=== PATIENT | female | born 1950 | race Caucasian/White ===

== ENCOUNTER 2020-10-18 10:54 | Emergency (ER) | payer MEDICARE, SELFPAY ==
[2020-10-18 11:15] VITALS: BP 135/43; PULSE 67; RESP 16; TEMP 37.1; O2SAT 97; BMI 23.0
--- NOTE | 2020-10-18 11:42 | ED.SKABFB ---
HPI - Skin/Abscess/Foreign Bdy General Chief complaint: Skin/Abscess/Foreign Body Stated complaint: BOIL Time Seen by Provider: 10/18/20 11:36 Source: patient Mode of arrival: ambulatory Limitations: no limitations History of Present Illness MD complaint: lesion Onset (ago): week(s) (4) Tetanus up to date: yes Location: chest Severity: mild Quality: dull Pain Consistency: intermittent Relieving factors: none Exacerbating factors: none Associated symptoms: denies other symptoms Treatments prior to arrival: antibiotic (on an antibiotic from med [facility] [employer]) Related Data Previous Rx's Medication Instructions Recorded cephalexin 500 mg PO BID 7 Days #14 cap 10/18/20 doxycycline hyclate 100 mg PO BID 7 Days #14 cap 10/18/20 Allergies Allergy/AdvReac Type Severity Reaction Status Date / Time No Known Allergies Allergy Verified 10/18/20 11:18 Review of Systems Review of Systems: Constitutional : No Fever, No Chills ENT/Mouth : No sore throat, No Rhinorrhea Eyes: No Eye Pain, No Swelling, No Redness Cardiovascular : No Chest Pain, No SOB Respiratory : No Cough, No Sputum Gastrointestinal : No Nausea, No Vomiting, No Diarrhea, No abdominal Pain Genitourinary : No Dysuria, No Hematuria Musculoskeletal : No joint pain, No Myalgias, No Joint Swelling Skin : pos Skin Lesions, no skin rash Neuro : No Weakness, No Numbness, No Headache Psych : No Anxiety, No Depression Heme/Lymph: No Bruising, No Bleeding,No Lymphadenopathy Endocrine : No Polyuria, No Polydipsia All other systems reviewed and are negative [facility] Past Medical History Attestation statement: The following information was validated with the patient. Medical History Arthritis GERD (gastroesophageal reflux disease) Migraine Social History Social History (Updated 10/18/20 @ 11:50 by Sarahi Ware DO) Patient Tobacco Use Status: Never used Tobacco Physical Exam Vital Signs: Vital Signs: Last Vital Signs Temp 98.7 F 10/18/20 11:15 Pulse 67 10/18/20 11:15 Resp 16 10/18/20 11:15 BP 135/43 L 10/18/20 11:15 Pulse Ox 97 10/18/20 11:15 Body Mass Index 23.0 Appearance: Alert. Oriented X3. No acute distress. Eyes: Pupils equal, round and reactive to light. ENT: Pharynx normal. Neck: Normal inspection. Neck supple. CVS: Normal heart rate and rhythm. Pulses normal. Chest: red raised area about 4cm feels firm, has yellow point to it but no fluctuance felt, it is moveable and not necrotic Respiratory: No respiratory distress. Breath sounds normal. Abdomen: Soft and nontender. Skin: Skin warm and dry. Normal skin color. Normal skin turgor. Extremities: No lower extremity edema. No calf ttp Neuro: Oriented X 3. No motor deficit. No sensory deficit. Course Course Course Narrative: US obtain shows 2cm area in the middle hypoechoic consistent with likely abscess only blood came from area ?hematoma, will refer to surgery and her PCP Procedures Abscess I/D Site: chest Side (if applicable): left Local Anesthetic: lidocaine 1% Amount of anesthesia used (mL): 3 Technique: needle aspiration and incised with blade Amount of fluid expressed (mL): 3 Sent for culture/gram staining?: No Irrigation: No Packing used?: none Complications: pain MDM - Skin/Abscess/Foreign Bdy MDM Narrative Medical decision making narrative: 70 yo female here with L sided skin lesion x 4 weeks - on bactrim which isn't working has one more dose, sent here to evaluate for abscess, will US the patient, change antibiotics to cephalexin/doxy and refer to her PCP for mammogram and US to make sure there is no underlying lesion Discharge Plan Discharge Clinical Impression: Abscess, Hematoma Patient Disposition: Home, Self-Care Instructions: Abscess (ED), Hematoma (ED) Additional Instructions: return to ED for any worsening symptoms or concerns keep clean and covered, only showers are okay it is important you follow up with your doctor for mammogram and US, only blood expressed today, please follow up with our surgeon as well if this does not go away with the antibiotics, stop taking bactrim Prescriptions: New doxycycline hyclate 100 mg capsule 100 mg PO BID 7 Days Qty: 14 RF: 0 cephalexin 500 mg capsule 500 mg PO BID 7 Days Qty: 14 RF: 0 Referrals: Roseann Maria MD [Primary Care Provider] - 2 days (ultrasound vs mammogram) Mike Hamilton MD [Physician] - 5 days (if not better)
[2020-10-18 12:02] VITALS: BP 139/74; PULSE 62; RESP 18; TEMP 36.7; O2SAT 96
[2020-10-18] MEDS: Lidocaine HCl 1 % MPF 5 ML VIAL SUBCUT (12:29)
== END 2020-10-18 12:57 | disposition home or self-care (01) ==
LOC: HO.ED 12:57
PROVIDERS: Emergency Provider Emergency Medicine; PCP Internal Medicine
DX: L02.213 Cutaneous abscess of chest wall (principal); S20.212A Contusion of left front wall of thorax, initial encounter; X58.XXXA Exposure to other specified factors, initial encounter; Y93.9 Activity, unspecified; Y92.9 Unspecified place or not applicable; Y99.9 Unspecified external cause status
CPT/HCPCS: 10060; 99283; 99284

== ENCOUNTER → 2020-10-28 15:26 | Outpatient (BNVA) | payer MEDICARE, SELFPAY | PROVIDERS: PCP Internal Medicine; Visit Provider Surgery | DX: N61.0 Mastitis without abscess (principal) | CPT/HCPCS: 99202 ==

== ENCOUNTER → 2020-11-04 14:38 | Outpatient (BNVA) | payer MEDICARE, SELFPAY | PROVIDERS: PCP Internal Medicine; Referring Provider Internal Medicine; Visit Provider Surgery | DX: N61.0 Mastitis without abscess (principal) | CPT/HCPCS: 99212 ==

== ENCOUNTER → 2020-11-25 14:02 | Outpatient (BNVA) | payer MEDICARE, SELFPAY | PROVIDERS: PCP Internal Medicine; Visit Provider Surgery | DX: N61.0 Mastitis without abscess (principal) | CPT/HCPCS: 99212 ==

== ENCOUNTER 2023-11-12 10:35 | Outpatient (AMB) | payer MEDICARE, SELFPAY ==
[2023-11-12 10:48] VITALS: BP 144/78; PULSE 72; TEMP 37.2; O2SAT 99; BMI 22.7
--- NOTE | 2023-11-12 10:48 | AM.OFFWIN_ITS ---
Intake Vital Signs 3 11/12/23 10:48 Height 5 ft 3 in Weight 128 lb BMI 22.7 BP 144/78 H Blood Pressure Location Lt brachial Position Sitting Pulse 72 Pulse Source Pulse Oximeter Temp 99.0 F Temp Source Oral Pulse Oximetry (%) 99 Oxygen Delivery Method Room Air Intake Visit Reasons: EP LT red/swelling eye Intake Note: Pt is here today c/o Lt eye red and swollen Patient Tobacco Use Status: Never used Tobacco Allergies No Known Allergies Allergy (Verified 11/12/23 10:48) HPI EP LT red/swelling eye 2 HPI0 Details Patient is a 73-year-old female comes to the walk-in clinic complaining of recurrent episodes of redness and swelling to her left periorbital area, usually at the crease to the lateral aspect of her eye. A usually radiates to the upper eyelid and causes swelling, and sometimes will radiate down into the lower eyelid. She reports that this has been happening for the last 4-6 months. She relates no new products used, and no allergens known. No changes to her pillow case, or sleeping arrangements however she does usually sleep on her left side. She denies any vision changes, discharge from the eye, headache or dizziness, pain to the area, any bleeding, redness or issue to the eye itself. [facility] Medical History Arthritis GERD (gastroesophageal reflux disease) Migraine Surgical History History of bilateral carpal tunnel release History of total right knee replacement (TKR) Social History Patient Tobacco Use Status: Never used Tobacco Physical Exam Vital Signs: Last Vital Signs Temp 99.0 F 11/12/23 10:48 Pulse 72 11/12/23 10:48 BP 144/78 H 11/12/23 10:48 Pulse Ox 99 11/12/23 10:48 Oxygen Delivery Method Room Air 11/12/23 10:48 BMI result Body Mass Index 22.7 Eyes Other: Erythema Eyes/upper lids images: 2 1. Erythema and very mild edema. No scaling, fluctuance or induration, and no visible hordeolum or stye noted. Assessment & Plan Assessment & Plan (1) Periorbital dermatitis: Code(s): L30.9 - Dermatitis, unspecified Plan: Patient with apparent left periorbital dermatitis, either contact or allergic. She has had this recurrent symptoms for the last 4-6 months. She reports that she will use makeup to cover the area after symptoms flare, and symptoms resolve during make up use. She otherwise does not use makeup or other products to the eye lashes or periorbital area. She denies known allergens otherwise, and reports no new changes to products. I advised that she do conservative management in regards to avoidance of irritants and allergens and only used soaps or other products that are hypoallergenic, which is the mainstay of treatment. She can use petroleum products that are hypoallergenic, and I will also write her for very low-dose topical steroid to use for maximum of 2 weeks. At that point, if symptoms are reoccurring she should follow up with PCP to discuss either Dermatology referral, or if it seems like she gets persistent swelling and this could be related to a blocked duct, she can be considered for referral to Dr. Hubert Rodriguez, who is a specialist in the eyelid. Orders: Orders 2 SARS-CoV2/FLU/RSV Today J06.9 - Acute upper respiratory infection, unspecified, R50.9 - Fever, unspecified Complete Blood Count Auto Diff Today R50.9 - Fever, unspecified Medications: New 2 hydrocortisone 0.5% Can discontinue use when symptoms resolve, use for a maximum of 2 weeks 1 appl topical BID 56 grams 0RF skin irritation 2 weeks Coding Level of Care Code Est Pt Level 4 (46248) Diagnoses Periorbital dermatitis L30.9
== END 2023-11-12 12:09 | disposition home or self-care (01) ==
PROVIDERS: PCP Internal Medicine; Visit Provider Physician Assistant Medical
DX: L30.9 Dermatitis, unspecified (principal)
CPT/HCPCS: 99051; 99214

== ENCOUNTER 2024-08-19 15:38 | Emergency (ER) | payer MEDICARE, SELFPAY ==
--- NOTE | ~2024-08-19 | CT_ITS ---
CLINICAL HISTORY: lumbar pain s p fall CT lumbar spine without contrast Comparison Findings: Normal vertebral body alignment. No fractures or dislocations. The vertebral bodies are normal in height. L2-3: No disc protrusion. L3-4: There is advanced degenerative narrowing of L3-4 with discogenic vertebral endplate sclerosis. There is posterior broad-based disc protrusion with bilateral 3 mm intraforaminal disc protrusions, mild bilateral foraminal stenosis. L4-5: There is posterior broad-based 4 mm disc protrusion and facet hypertrophy with mild bilateral foraminal stenosis. Paraspinous musculature normal. Normal visualized abdominal and pelvic contents. Impression: Moderate degenerative disc space at L4-5 on the right and L3-4 on the left. There is facet hypertrophy and posterior ligament invagination with circumferential canal stenosis most marked L2-3. This document has been electronically signed by: Brandon Zapata MD on 08/19/2024 18:14:24
[2024-08-19 15:44] VITALS: BP 158/73; PULSE 68; RESP 18; TEMP 36.4; O2SAT 100; BMI 23.8
--- NOTE | 2024-08-19 15:46 | ED_ITS ---
HPI - General Adult General Chief complaint: Fall Stated complaint: fall from stool on back Time Seen by Provider: 08/19/24 17:43 Source: patient Mode of arrival: ambulatory Limitations: no limitations History of Present Illness ED Provider: ANAY ALMODOVAR PA-C HPI narrative: 73-year-old female with pmhx significant for arthritis, migraine headache, GERD presents to the ED today for evaluation of diffuse low back pain s/p mechanical fall at 1400 today. She reports attempting to step off of a step stool when she fell, causing her to land on her low back. Denies head strike or LOC. Not on AC. Able to stand and ambulate after fall. Reports pain to the entire low back. She did not trial any [id number] pain medications prior to arrival. Denies hx of spinal surgeries. Denies hx IVDU. Denies bowel/bladder incontinence or retention, numbness/tingling/weakness of the lower extremities, saddle anesthesia. Reports hx of chronic low back pain, currently follows with chiropractor. Related Data Home Medications ?Medication ?Instructions ?Recorded ?Confirmed hydroxychloroquine 200 mg tablet mg PO 03/10/22 propranolol 60 mg capsule,24 60 mg PO DAILY 03/10/22 hr,extended release sumatriptan succinate 100 mg tablet 100 mg PO Q2-4H PRN 03/10/22 famotidine 40 mg tablet (Pepcid) 40 mg PO DAILY 11/12/23 Previous Rx's ?Medication ?Instructions ?Recorded hydrocortisone 0.5 % topical 1 appl topical BID skin irritation 11/12/23 ointment 2 weeks #56 grams baclofen 5 mg tablet 5 mg PO TID PRN muscle pain #10 08/19/24 tabs lidocaine 5 % topical patch 1 patch topical DAILY #15 ea 08/19/24 (Lidoderm) Allergies Allergy/AdvReac Type Severity Reaction Status Date / Time No Known Allergies Allergy Verified 08/19/24 15:47 Review of Systems Review of Systems: Yes all other systems are reviewed and are negative [facility] Past Medical History Attestation statement: The following information was validated with the patient. Source: old records reviewed and nursing notes reviewed Medical History Arthritis Migraine GERD (gastroesophageal reflux disease) Surgical History History of total right knee replacement (TKR) History of bilateral carpal tunnel release Social History Social History Patient Tobacco Use Status: Never used Tobacco Advance Directives: No Advance Directives Information Provided: No Physical Exam ED Vital Signs: Vital Signs - 24 hr 08/19/24 15:44 08/19/24 16:58 08/19/24 16:58 Temperature 97.6 F 98.6 F 98.6 F Pulse Rate 68 69 70 Respiratory Rate 18 20 20 Blood Pressure 158/73 H 169/87 H 169/87 H Pulse Oximetry 100 100 100 Oxygen Delivery Method Room Air Room Air 08/19/24 18:00 Temperature 97.6 F Pulse Rate 69 Respiratory Rate 18 Blood Pressure 173/82 H Pulse Oximetry 100 Oxygen Delivery Method Room Air BMI result Body Mass Index 23.8 hypertensive, afebrile General: Well appearing, in no acute distress. Skin: Warm, dry, intact. No rashes or lesions. Head: Normocephalic, atraumatic. EENT: Hearing is intact b/l. Conjunctiva clear. Sclera is anicteric. PERRLA. EOM intact. Neck: Supple without LAD. Cardiac: Chest wall symmetric. RRR. Lungs: Normal respiratory effort without accessory muscle use. CTA bilaterally. Abdomen: Soft, non-tender, non-distended. No rebound tenderness or guarding. Positive BS x4. Back: +TTP of left lumbar paraspinal musculature. No midline spinous tenderness. No step off deformity. Ext: Upper and lower extremities atraumatic, without tenderness, deformity, swelling or erythema. Full ROM throughout. Strength 5/5 throughout. Neuro: AOx3. Normal speech. Sensation intact to light touch. NV intact distally. Ambulating with steady gait. Course Course Course Narrative: RME performed by Sariah Jackson PA-C. Patient is a 73 year old assigned female at presenting to the emergency department with back pain. Patient states that she fell off of a 3 step stool and landed flat on her back. Patient states that she is now having back pain and pain with breathing. Patient states that she did not hit her head or have any loss of consciousness. Patient denies any anti-coagulation medication use. Detailed physical exam and review of systems are deferred to the insulator cutter and former. Imaging ordered. Patient placed back in the waiting room pending room availability and results. Reevaluation(s) Reevaluation #1: CT lumbar spine without acute fracure. exam benign. no back pain red flags. pain has improved w/ baclofen, lido patch, and tylenol. patient requesting to leave the ED - I feel his is reasonable. Patient has remained stable throughout ED visit today. Discussed worrisome signs and symptoms and when to return to the ED. All questions answered at this time. Patient is agreeable with disposition and stable for discharge. Medications Administered Discontinued Medications Generic Name Dose Route Start Last Admin Trade Name Freq PRN Reason Stop Dose Admin Acetaminophen 975 mg 08/19/24 17:55 08/19/24 18:05 Acetaminophen 325 Mg Tablet PO 08/19/24 17:56 975 mg ONCE ONE Administration Baclofen 10 mg 08/19/24 17:55 08/19/24 18:05 Baclofen 10 Mg Tablet PO 08/19/24 17:56 10 mg ONCE ONE Administration Lidocaine 1 patch 08/19/24 17:55 08/19/24 18:05 Lidocaine 4 % Patch Adh..Patch TRANSDERMA 08/19/24 17:56 1 patch ONCE ONE Administration Protocol Medical Decision Making Medical Decision Making MDM Narrative: 73-year-old female with pmhx significant for arthritis, migraine headache, GERD presents to the ED today for evaluation of diffuse low back pain s/p mechanical fall at 1400 today. hypertensive, afebrile. she is well appearing and in NAD. exam benign. she has no midline spinous tenderness or step off deformity. primarily ttp along left lumbar paraspinal musculature without palpable mass, deformity, fluctuance. pacing around the room with steady gait. SITL throughout. NV intact distally. Concern for contusion, MSK sprain/strain, fracture, subluxation, disc herniation, sciatica. Unlikely cord compression, cauda equina, Guillain-Nenzel, epidural abscess. Plan for imaging, pain control, and re-evaluation. Differential Diagnosis Differential Diagnoses: The differential diagnosis associated with the presentation includes as above Admission/Observation Not indicated. Independent Interpretation I performed an independent interpretation of an: CT Scan Interpretation: ct lumbar spine without acute fracture Radiology Impression Discussion of test interpretation with radiology: I have reviewed the radiologist's reading. Radiologist Impression: Procedure(s): CT lumbar spine wo IV con Accession Number(s): [id number] cc: ROSEANN VICK MD; Sariah Jackson~ Report Number: [id number]: Total DLP = 327.00 mGy-cm CLINICAL HISTORY: lumbar pain s p fall CT lumbar spine without contrast Comparison Findings: Normal vertebral body alignment. No fractures or dislocations. The vertebral bodies are normal in height. L2-3: No disc protrusion. L3-4: There is advanced degenerative narrowing of L3-4 with discogenic vertebral endplate sclerosis. There is posterior broad-based disc protrusion with bilateral 3 mm intraforaminal disc protrusions, mild bilateral foraminal stenosis. L4-5: There is posterior broad-based 4 mm disc protrusion and facet hypertrophy with mild bilateral foraminal stenosis. Paraspinous musculature normal. Normal visualized abdominal and pelvic contents. Impression: Moderate degenerative disc space at L4-5 on the right and L3-4 on the left. There is facet hypertrophy and posterior ligament invagination with circumferential canal stenosis most marked L2-3. This document has been electronically signed by: Brandon Zapata MD on 08/19/2024 18:14:24 External Record Review External record reviewed: Inpatient record Prescription Management I considered prescription management with: Pain Medication and Other (Muscle relaxer, steroid) Social Determinants Patient?s care significantly limited by Social Determinants of Health including: Other Social Determinant of Health Critical Care Time Critical Care Time Critical Care Time: No Discharge Plan Discharge Clinical Impression: Lumbar back pain, Fall Patient Disposition: Home, Self-Care Instructions: Acute Low Back Pain (ED), Fall Prevention (ED) Additional Instructions: You were evaluated in the Emergency Department today for your back pain.? Your evaluation did not show signs of medical conditions requiring emergent intervention at this time. Avoid bending, lifting, or twisting. Use ice several times per day for 20 minutes at a time for the next 48 hours and then change to heat. I recommend you take 600mg ibuprofen every 6 hours or tylenol 650mg every 6 hours as needed for pain. If needed, you can alternate these medications so that you take one medication every 3 hours. For example, at noon take ibuprofen, then at 3pm take tylenol, then at 6pm take ibuprofen. Baclofen is a muscle relaxer. Take this at night as it makes you drowsy. Do not drive, drink alcohol, or operate machinery while taking it. Lidoderm patches are numbing patches. Apply to painful areas. Please schedule an appointment for follow-up with your primary care provider this week for further evaluation of your symptoms. Return to the Emergency Department if you experience worsening back pain, difficulty walking, fevers, numbness, tingling, incontinence, or any other concerning symptoms. In the case of an emergency call 911. Prescriptions: New lidocaine [Lidoderm] 5 % adhesive patch,medicated 1 patch topical DAILY Qty: 15 0RF Rx Instructions: leave on most painful area for up to 12 hrs baclofen 5 mg tablet 5 mg PO TID PRN (Reason: muscle pain) Qty: 10 0RF No Action hydroxychloroquine 200 mg tablet PO propranolol 60 mg capsule,extended release 24 hr 60 mg PO DAILY sumatriptan succinate 100 mg tablet 100 mg PO Q2-4H PRN Rx Instructions: do not exceed 2 doses per 24 hrs famotidine [Pepcid] 40 mg tablet 40 mg PO DAILY hydrocortisone 0.5 % ointment 1 appl topical BID 14 Days Qty: 56 0RF Rx Instructions: Can discontinue use when symptoms resolve, use for a maximum of 2 weeks Referrals: Roseann Vick MD [Primary Care Provider] - Babatunde Castillo MD, PhD [Physician] - Print Language: [place]
[2024-08-19 16:58] VITALS: BP 169/87; PULSE 69; PULSE 70; RESP 20; TEMP 37; O2SAT 100
--- OUTSIDE RECORDS SUMMARY | 2024-08-19 17:05 | XMS_ITS | Data Portability ---
Author Organization АНДРЕЙ De León markus [address] Address [address] [place] [address] Assessment No assessment recorded. Plan of Treatment Reminders Order Date Submit Date Provider Last Modified By Organization Details Last Modified Time Details Appointments None recorded. Lab None recorded. Referral None recorded. Procedures None recorded. Surgeries None recorded. Imaging None recorded. Medication Orders Lomotil 2.5 mg-0.025 mg tablet 023 023 [email or web address] [facility]/Pharmacy #[id number], [address] [facility] [place], [address], 12:43:34 Patient TargetsNo targets recorded. Patient Instructions Encounter Date Encounter Id Patient Instructions Last Modified By Organization Details Last Modified Time 10/24/2022 [id number] diarrhea: care instructions [email or web address] Not available 10/24/2022 15:25:55 Take 1 OTC Immodium after each loose bowel movement. No more than 4 tablets a day. Not available 10/24/2022 14:47:09 Reason for Referral None Reported. Problems Name Problem SNOMED Code Status Onset Date Resolution Date Notes Provider Name and Address Organization Details Recorded Time Hypertensive disorder 87193109 Active 2022 LELAND mahmood PA - [facility] 3 14:49:17 Problem Notes None recorded. Procedures Surgical History Date Name Laterality Status Provider Name and Address Organization Details Recorded Time total replacement of right hip joint completed LELAND Browning [facility] 10/24/2022 14:50:38 Imaging Results None recorded. Procedure Notes None recorded. Medical Equipment None Reported. Allergies No known drug allergies Medications Name Sig Start Date Stop Date Status Note LastModified by Organization Details LastModified Time prednisone 10 mg tablet TAKE 3 TABLETS BY MOUTH TWICE A DAY WITH FOOD FOR 5 DAYS FOR INFLAMMAT ION 10/24 completed Not Available Not Available Not Available propranolol ER 60 mg capsule,24 hr,extended release active Not Available Not Available Not Available diphenoxyla te-atropine 2.5 mg-0.025 mg tablet TAKE 1-2 TABS BY MOUTH 2-3 TIMES DAILY NEEDED DIARRHEA/ LOOSE STOOL. MAX 8/ DAY active Not Available Not Available No t Available amlodipine 5 mg tablet active Not Available Not Available Not Available clotrimazol e-betametha sone 1 %-0.05 % topical cream APPLY TOPICALLY TWICE DAILY FOR 14 DAYS, DO NOT USE LONGER THAN 2 WEEKS 10/24 completed Not Available Not Available Not Available cyclobenzap rine 5 mg tablet TAKE 1 TABLET BY MOUTH TWICE A DAY NEEDED FOR MUSCLE SPASM FOR 7 DAYS 10/24 completed Not Available Not Available Not Available Vitals Date Recorded Body height Body mass index (BMI) Body weight Oxygen saturation Oxygen saturation in Arterial blood by Pulse oximetry Pain severity - 0-10 verbal numeric rating [Score] - Reported Heart rate Respiratory rate Body temperature Systolic blood pressure Diastolic blood pressure Provider Name and Address Organization Details Last Updated DateTime 160.02 cm 22.1 kg/m2 64215.0 5 g 97 % 97 % 0 78 /min 16 /min 98.2 [degF] 148 mm[Hg] 82 mm[Hg] LELAND VIDAL PA - [facility] 14:52:39 Social History Question Answer Notes LastModified by Organizat ion Details LastModified Time Tobacco Smoking Status Former Smoker LELAND mahmood PA - [facility] 10/24/2022 14:49:40 What Is Your Level Of Alcohol Consumption? Occasional Information not available 10/24/2022 When Did You Quit Smoking? 16+yearssincel shellie Information not available 10/24/2022 Do You Use Any Illicit Or Recreational Drugs? No Information not available 10/24/2022 Have You Recently Traveled Abroad? No Information not available 10/24/2022 Do You Or Have You Ever Used Any Other Forms Of Tobacco Or Nicotine? No Information not available 10/24/2022 Sex: Unknown Functional Status None recorded. Mental Status None recorded. Family History Relationship Description Onset Age of this Age Resolved Age Notes LastModified by Organization Details LastModified Time Father No current problems or disability Not available 10/24 14:49:26 Mother No current problems or disability Not available 10/24 14:49:27 Medical History No medical history recorded. Gynecological HistoryNo gynecological history recorded. Obstetrics History GPAL:G 0 P 0 0 0 0 Immunizations Vaccine Type Date Status Note Provider Nam e and Address Organization Details Recorded Time COVID-19, mRNA, LNP-S, PF, 100 mcg/0.5mL dose or 50 mcg/0.25mL dose 05/13/2020 completed LELAND VIDAL null, PA - [facility] 10/24/2022 14:48:39 COVID-19, mRNA, LNP-S, PF, 100 mcg/0.5mL dose or 50 mcg/0.25mL dose 06/10/2020 completed LELAND VIDAL null, PA - [facility] 10/24/2022 14:48:39 COVID-19, mRNA, LNP-S, PF, 100 mcg/0.5mL dose or 50 mcg/0.25mL dose 02/03/2021 completed LELAND YOUNG null, PA - [facility] 10/24/2022 14:48:39 COVID-19, mRNA, LNP-S, bivalent, PF, 50 mcg/0.5 mL or 25mcg/0.25 mL dose 01/14/2022 completed LELAND VIDAL null, PA - [facility] 10/24/2022 14:48:39 Past Encounters Encounter ID Performer Location Encounter Start Date Encounter Closed Date Diagnosis/Indication Diagnosis SNOMED-CT Code Diagnosis ICD10 Code Diagnosis Note [id number] [facility] [facility] [address] [place] [address] 11/08/2014 17:19:09 11/08/2014 19:47:48 [id number] [address] [place] [address] 12/03/2018 08:19:15 12/03/2018 09:02:54 [id number] [address] [facility] [place] [address] 06/28/2021 09:08:53 06/28/2021 10:24:32 [id number] [address] [facility] [place] [address] 02/24/2019 10:47:38 02/24/2019 10:54:49 [id number] [address] [facility] [place] [address] 10/30/2017 11:59:58 10/30/2017 13:04:16 [id number] [address] [facility] [place] [address] 12/27/2021 08:31:32 12/27/2021 10:52:34 [id number] [address] [facility] [place] [address] 02/04/2020 12:25:42 02/04/2020 14:34:01 [id number] [address] [facility] [place] [address] 05/19/2020 12:20:32 05/19/2020 13:33:18 [id number] [address] [facility] [place] [place] [address] 05/07/2017 11:50:30 05/07/2017 12:23:26 [id number] [address] [facility] [place] [address] 11/02/2017 11:43:07 11/02/2017 12:18:11 [id number] [address] [place] [address] 11/25/2017 16:53:01 11/25/2017 18:43:52 [id number] [address] [place] [address] 12/05/2018 13:26:04 12/05/2018 14:14:28 [id number] [address] [place] [address] 08/11/2016 09:17:10 08/11/2016 09:50:36 [id number] [address] [place] [address] 03/19/2020 08:55:10 03/19/2020 10:25:32 [id number] [address] [place] [address] 10/14/2020 08:25:43 10/14/2020 09:08:01 [id number] Vidal Dukes DO [address] [place] [address] 10/24/2022 14:20:32 10/24/2022 15:31:21 Diarrhea 40473030 R19.7 BRAT dietavoid dairy products, excess sugars, processed foodTrial daily fiber w/proboiti ctrial lomotil defer labs for now Patient advised to follow up w/ PCP as needed for worsening symptoms or no improvemen t. Discussed concerning red flags with patient and reasons to follow up in the Emergency Department urgently. Health Concerns Section Related Observation LastModified by Organization Detai ls LastModified Time None Recorded Concern Status LastModified by Organization Details LastModified Time None Recorded Advance Directives Directive None Recorded Payers Insurance Date Sequence Insurance Name Policy Number Policy Bush Covered Member ID Bush Member ID Guarantor Name 10/24/2022 1 [facility]: MEDICARE PPO BLUE (MEDICARE REPLACEMENT PPO) [id number] Kizzy Nguyễn [id number] Kizzy Nguyễn 10/24/2022 1 [place] (MEDICARE REPLACEMENT PPO) Kizzy Nguyễn [id number] Kizzy Nguyễn 10/24/2022 1 [facility] (MEDICARE REPLACEMENT/AD VANTAGE - HMO) [id number] Kizzy Nguyễn [id number] Kizzy Nguyễn Notes Date Note Type Note Provider Name and Address Organization Details Recorded Time 10/24/2022 text/html Diarrhea UCRepor molly bypatient.Notes:72 yo femalec/o intermittently over the past 3wksno abdominal pain, fever, nausea or vomitingno bleedingno diet changesno new medsno recent travelno wt loss BM 2-4 x/day. Loose/watery stooltried pepto bismol w/o improvement Vidal Dukes, DO [address] [place], [address], PA - [facility] 10/24/2022 19:41:15 OBGyn Episode No OBEpisode recorded.
--- NOTE | 2024-08-19 17:06 | PC.NURSE ---
Patient is a 73 yo female who presents from home s/p fall from a stool in her shed, landing on her mid back. PMH: Arthritis, GERD (gastroesophageal reflux disease), and Migraine. Patient alert and oriented. Sitting in the chair for comfort. Respirations even and non-labored. Denies any sob. Abdomen flat soft, non-tender with positive bowel sounds. No LE edema noted.
[2024-08-19 18:00] VITALS: BP 173/82; PULSE 69; RESP 18; TEMP 36.4; O2SAT 100
[2024-08-19] MEDS: Baclofen 10 MG TABLET PO (18:05)
[2024-08-19] MEDS: Acetaminophen 325 MG TABLET 975 MG PO (18:05)
[2024-08-19] MEDS: Lidocaine 4 % Patch ADH..PATCH 1 PATCH TRANSDERMA (18:05)
[2024-08-19 18:56] VITALS: BP 173/82; PULSE 69; RESP 18; TEMP 36.4; O2SAT 100
== END 2024-08-19 18:57 | disposition home or self-care (01) ==
PROVIDERS: Emergency Provider Emergency Medicine Emergency Medical Services; PCP Internal Medicine
DX: M54.50 Low back pain, unspecified (principal); Z79.899 Other long term (current) drug therapy
CPT/HCPCS: 72131; 99284

== ENCOUNTER → 2024-08-19 15:47 | Outpatient (BNV) | payer MEDICARE, SELFPAY | PROVIDERS: Emergency Provider Emergency Medicine Emergency Medical Services; PCP Internal Medicine; Visit Provider Radiology Diagnostic Radiology | DX: M54.50 Low back pain, unspecified (principal) | CPT/HCPCS: 72131 ==

== ENCOUNTER 2024-08-28 08:14 | Emergency (ER) | payer MEDICARE, SELFPAY ==
--- NOTE | ~2024-08-28 | XR_ITS ---
EXAMINATION: XR RIBS 3 VIEWS MINIMUM WITH CHEST LEFT HISTORY: pain s/p fall COMPARISON: There are no prior studies for comparison. FINDINGS: A single PA view of the chest and 3 views of the left ribs are submitted. The lungs are expanded and clear. There is no pleural effusion, pneumothorax, or pulmonary vascular congestion. The heart is normal in size. The left ribs are intact. No fracture is seen. XR/XR ribs LT min 3V w CXR1V IMPRESSION: Clear lungs. No evidence of fracture of the left ribs. Electronically signed by: Kleber Baldwin MD 08/28/2024 09:44 AM EDT
[2024-08-28 08:23] VITALS: BP 161/82; PULSE 87; RESP 16; TEMP 37.4; O2SAT 99; BMI 23.5
--- OUTSIDE RECORDS SUMMARY | 2024-08-28 08:54 | XMS_ITS | Patient Health Record ---
Author Organization [facility] Address [address] [place] [address] Care Team Providers Care Shift Coordinator Name Role Phone NICANOR Hardy, DR YOON Primary Care Provider Unavail able BuckMaricelli Unavailable [phone] Reason For Referral No Information Medications Medication SIG (Take, Route, Frequency, Duration) Notes Start Date End Date Status Escitalopram Oxalate 20 MG 1 tablet Oral ly Once a day for 30 day(s) Active Imitrex 100 MG 1 tablet as needed Orally Active Propranolol HCl 60 MG 1 tablet Orally On ce a day Active Zantac 75 75 MG 1 tablet Orally Once a day, am Active Plaquenil 200 MG 1 tablet with food o r milk Orally Twice a day Active Social History Tobacco Use: Social History Observation Description Date Details (start date - stop date) Former Smoker NA - NA Tobacco Use/Smoking Question Answer Notes Are you a former smoker How long has it been since you last smoked? > 10 years Alcohol Screen (Audit-C) Question Answer Notes Did you have a drink contain ing alcohol in the past year? Yes How often did you have a dri nk containing alcohol in the past year? 2 to 4 times a month (2 points) How many drinks did you have on a typical day when you were drinking in the past year? 1 or 2 drinks (0 point) Points 2 Interpretation Negative Sexual History Question Answer Notes Had sex in the past 12 months (vaginal, oral, or anal)? No Have you ever had a Sexually transmitted disease ? No Problems Problem Type SNOMED Code ICD Code Onset Dates Problem Status W/U Status Risk Notes Problem Mild recurrent major depression (73112932) Major depressive disorder, recurrent, mild (F33.0) Active confirmed Problem Menopause (776150961) Menopausal and female climacteric states (N95.1) Active confirmed Plan Of Treatment Pending Test Test Name Order Date MAMMOGRAM, SCREENING 07/05/2018 BONE DENSITY 07/05/2018 MM Digital Mammo Screening 07/05/2018 Insurance Providers Payer Name Payer Address Payer Phone Subscriber Number Group Number Insured Name Patient Relationship to Insured Coverage Start Date Coverage End Date [facility] MEDICARE SOLUTIONS [address] [address] [place] [address] [id number] ANTONIETTA STYLES Self - patient is the insured Medical (General) History Medical History History ICD Code Gastro-esophageal reflux disease without esophagitis K21.9 Unspecified osteoarthritis, unspecified site M19.90 Migraine with aura, not intractable, wit hout status migrainosus G43.109 Menopausal and female climacteric states N95.1 Hormone replacement therapy Z79.890 Major depressive disorder, recurrent, mi ld F33.0 Surgical History Surgery Date(Month/Year) Right Hip Replacement 2012 Hospitalization History Reason Date(Month/Year) 2 Vaginal Deliveries See Surgical Hx
--- OUTSIDE RECORDS SUMMARY | 2024-08-28 08:54 | XMS_ITS | Data Portability ---
Author Organization АНДРЕЙ De León markus [address] Address [address] [place] [address] Assessment No assessment recorded. Plan of Treatment Reminders Order Date Submit Date Provider Last Modified By Organization Details Last Modified Time Details Appointments None recorded. Lab None recorded. Referral None recorded. Procedures None recorded. Surgeries None recorded. Imaging None recorded. Medication Orders Lomotil 2.5 mg-0.025 mg tablet 023 023 [email or web address] [facility]/Pharmacy #[id number], [address] [facility] [place], [address], 12:43:34 Patient TargetsNo targets recorded. Patient Instructions Encounter Date Encounter Id Patient Instructions Last Modified By Organization Details Last Modified Time 10/24/2022 [id number] diarrhea: care instructions [email or web address] Not available 10/24/2022 15:25:55 Take 1 OTC Immodium after each loose bowel movement. No more than 4 tablets a day. Not available 10/24/2022 14:47:09 Reason for Referral None Reported. Problems Name Problem SNOMED Code Status Onset Date Resolution Date Notes Provider Name and Address Organization Details Recorded Time Hypertensive disorder 71877266 Active 2022 [facility] saturation in Arterial blood by Pulse oximetry Heart rate Respiratory rate Body temperature Systolic blood pressure Diastolic blood pressure Provider Name and Address Organization Details Last Updated DateTime 3 160.02 cm 22.1 kg/m2 18759.0 5 g 97 % 97 % 78 /min 16 /min 98.2 [degF] 148 mm[Hg] 82 mm[Hg] LELAND VIDAL PA - [facility] 14:52:39 Social History Question Answer Notes LastModified by [employer] Details LastModified Time Tobacco Smoking Status Former Smoker LELAND mahmood PA - [facility] 10/24/2022 14:49:40 When Did You Quit Smoking? 16+yearssinc elastcigaret te Information not available 10/24/2022 Have You Recently Traveled Abroad? No Information not available 10/24/2022 Sex: Unknown Functional Status Question Answer Note LastModified by [employer] Details LastModified Time Do you use any illicit or recreational drugs? No Information not available 10/24/2022 Do you or have you ever used any other forms of tobacco or nicotine? No Information not available 10/24/2022 What is your level of alcohol consumption? Occasional Information not available 10/24/2022 Mental Status None recorded. Family History Relationship [...] 50 mcg/0.25mL dose 06/10/2020 completed LELAND VIDAL null PA - [facility] 10/24/2022 14:48:39 COVID-19, mRNA, LNP-S, PF, 100 mcg/0.5mL dose or 50 mcg/0.25mL dose 02/03/2021 completed LELAND VIDAL null, PA - [facility] 10/24/2022 14:48:39 COVID-19, mRNA, LNP-S, bivalent, PF, 50 mcg/0.5 mL or 25mcg/0.25 mL dose 01/14/2022 completed LELAND VIDAL null, PA - [facility] 10/24/2022 14:48:39 Past Encounters Encounter ID Performer Location Encounter Start Date Encounter Closed Date Diagnosis/Indication Diagnosis SNOMED-CT Code Diagnosis ICD10 Code Diagnosis Note [id number] [facility] [facility] [address] [place] [address] 11/08/2014 17:19:09 11/08/2014 19:47:48 [id number] [address] [place] [address] 12/03/2018 08:19:15 12/03/2018 09:02:54 [id number] [address] [facility] [place] [address] 06/28/2021 09:08:53 06/28/2021 10:24:32 [id number] [address] [place] [address] 02/24/2019 10:47:38 02/24/2019 10:54:49 [id number] [address] [place] [address] 10/30/2017 11:59:58 10/30/2017 13:04:16 [id number] [address] [place] [address] 12/27/2021 08:31:32 12/27/2021 10:52:34 [id number] [address] [place] [address] 02/04/2020 12:25:42 02/04/2020 14:34:01 [id number] [address] [place] [address] 05/19/2020 12:20:32 05/19/2020 13:33:18 [id number] [address] [place] [address] 05/07/2017 11:50:30 05/07/2017 12:23:26 [id number] [address] [place] [address] 11/02/2017 11:43:07 11/02/2017 12:18:11 [id number] [address] [place] [address] 11/25/2017 16:53:01 11/25/2017 18:43:52 [id number] [address] [place] [address] 12/05/2018 13:26:04 12/05/2018 14:14:28 [id number] [address] [place] [address] 08/11/2016 09:17:10 08/11/2016 09:50:36 [id number] [address] [place] [address] 03/19/2020 08:55:10 03/19/2020 10:25:32 [id number] [address] [place] [address] 10/14/2020 08:25:43 10/14/2020 09:08:01 [id number] Vidal Dukes DO [address] [place] [address] 10/24/2022 14:20:32 10/24/2022 15:31:21 Diarrhea [id number] R19.7 BRAT dietavoid dairy products, excess sugars, [...] Bush Member ID Guarantor Name 10/24/2022 1 [employer] (MEDICARE [place]ACEMENT PPO) [id number] Kizzy Nguyễn [id number] Kizzy Nguyễn 10/24/2022 1 [place] (MEDICARE [place]PLACEMENT PPO) Kizzy Nguyễn [id number] Kizzy Nguyễn 10/24/2022 1 [facility] (MEDICARE REPLACEMENT/AD VANTAGE - HMO) [id number] Kizzy Mehta [place] [id number] Kizzy Nguyễn Notes Date Note Type Note Provider Name and Address Organization Details Recorded Time 10/24/2022 text/html Diarrhea UCRepor molly bypatient.Notes:72 yo femalec/o intermittently over the past 3wksno abdominal pain, fever, nausea or vomitingno bleedingno diet changesno new medsno recent travelno wt loss BM 2-4 x/day. Loose/watery stooltried pepto bismol w/o improvement Vidal Dukes, DO [address] [place], [address], PA - [facility] 10/24/2022 19:41:15 OBGyn Episode No OBEpisode recorded.
--- NOTE | 2024-08-28 09:13 | ED_ITS ---
HPI - URI/Sore Throat General Chief Complaint: Upper Respiratory Symptoms Stated Complaint: Back pain Time Seen by Provider: 08/28/24 09:00 Source: patient Mode of arrival: ambulatory Limitations: no limitations History of Present Illness ED Provider: Josep Duncan PA-C HPI Narrative: 73 yo female presenting to the ER for evaluation of cough for the last 3 days along with worsening left sided rib pain associated with it. She reports calling in her garden shed on Mother's day on her left side. She has had rib pain since but it was overall improving. She started coughing 3-4 days ago and then the pain in the ribs was getting worse. Worse with coughing and deep breaths. Cough is dry and keeping her up at night, not sleeping the last 3 nights. No fever, chills, or other URI symptoms. She is on meds for seasaonal allergies. She is not SOB. MD elicited complaint: cough Onset (ago): day(s) Consistency: progressively worsening Able to tolerate fluids by mouth: Yes Exacerbating factors: supine positioning and other (coughing) Relieving factors: nothing Associated symptoms: cough Treatments prior to arrival: none Related Data Home Medications ?Medication ?Instructions ?Recorded ?Confirmed hydroxychloroquine 200 mg tablet mg PO 03/10/22 propranolol 60 mg capsule,24 60 mg PO DAILY 03/10/22 hr,extended release sumatriptan succinate 100 mg tablet 100 mg PO Q2-4H PRN 03/10/22 famotidine 40 mg tablet (Pepcid) 40 mg PO DAILY 11/12/23 Previous Rx's ?Medication ?Instructions ?Recorded hydrocortisone 0.5 % topical 1 appl topical BID skin irritation 11/12/23 ointment 2 weeks #56 grams baclofen 5 mg tablet 5 mg PO TID PRN muscle pain #10 08/19/24 tabs lidocaine 5 % topical patch 1 patch topical DAILY #15 ea 08/19/24 (Lidoderm) benzonatate 100 mg capsule 100 mg PO TID PRN cough #20 caps 08/28/24 codeine 10 mg-guaifenesin 200 mg/5 5 ml PO Q6H PRN cough #60 mL 08/28/25 mL oral liquid cyclobenzaprine 5 mg tablet 5 mg PO BID PRN muscle spasm #10 08/28/24 tabs hydrocodone-homatropine 5 mg-1.5 5 ml PO Q6H PRN cough #60 mL 08/28/24 mg/5 mL (5 mL) oral solution (Hycodan) Allergies Allergy/AdvReac Type Severity Reaction Status Date / Time No Known Allergies Allergy Verified 08/28/24 08:29 Review of Systems Review of Systems: Yes all other systems are reviewed and are negative COUNTS INCLUDE 234 BEDS AT THE [facility] Past Medical History Medical History Arthritis Migraine GERD (gastroesophageal reflux disease) Surgical History History of total right knee replacement (TKR) History of bilateral carpal tunnel release Social History Social History Patient Tobacco Use Status: Never used Tobacco Physical Exam Vital Signs: Vital Signs: Last Vital Signs Temp 98.0 F 08/28/24 10:53 Pulse 87 08/28/24 10:53 Resp 16 08/28/24 10:53 BP 155/50 H 08/28/24 10:53 Pulse Ox 99 08/28/24 10:53 O2 Del Method Room Air 08/28/24 10:53 BMI result Body Mass Index 23.5 Appearance: Alert. Oriented X3. No acute distress. Head: normocephalic, atraumatic. Eyes: Pupils equal, round and reactive to light. ENT: Pharynx normal. No tonsillar swelling or exudate. Neck: Normal inspection. Neck supple. CVS: Normal heart rate and rhythm. Pulses normal. Respiratory: No respiratory distress. Breath sounds normal. no ecchymosis on the left flank. mild tenderness of left lateral ribs Abdomen: Soft and nontender. +BS x4 Skin: Skin warm and dry. Normal skin color. Normal skin turgor. No rashes. Extremities: No lower extremity edema. No joint swelling. Neuro/psych: Oriented X 3. grossly normal, nonfocal. Normal speech and cognition. Medical Decision Making Medical Decision Making MDM Narrative: 73 yo female presenting for evaluation of cough and left sided rib pain s/p fall on 08/20. VSS and lung sounds normal and present in all lung moore. CXR and rib xray clear. viral URI negative. low suspicion for intra-abdominal trauma or PE. no emergent need for CTA/CT scan today. will treat cough with antitussives and MSK pain encouraged f/u with PCP. stable for d/c home Differential Diagnosis Differential Diagnoses: The differential diagnosis associated with the presentation includes rib fracture, rib contusion, pulmonary contusion, URI, PNA, bronchitis. low suspicion for PE or ACS Admission/Observation Consideration of admission/observation: Escalation of care including admission/observation considered Lab Data MDM Lab Attestation statement: I reviewed the patient's lab results. Labs: Lab Results 08/28/24 Range/Units 09:15 Influenza Type A (PCR) NEGATIVE (Negative) Influenza Type B (PCR) NEGATIVE (Negative) RSV RNA Qual (PCR) NEGATIVE (Negative) SARS-CoV-2 RNA (RT-PCR) NEGATIVE (Negative) Independent Interpretation I performed an independent interpretation of an: Plain X-Ray Interpretation: cxr without PTX or PNA Radiology Impression Discussion of test interpretation with radiology: I have reviewed the radiologist's reading. Radiologist Impression: XR/XR ribs LT min 3V w CXR1V IMPRESSION: Clear lungs. No evidence of fracture of the left ribs. Tests considered The following testing was considered but not selected: considered CT scan Prescription Management I considered prescription management with: Antibiotic Critical Care Time Critical Care Time Critical Care Time: No Discharge Plan Discharge Clinical Impression: Contusion of rib on left side Patient Disposition: Home, Self-Care Instructions: Rib Contusion (ED) Additional Instructions: your xrays today were normal take the prescribed cough medication and muscle relaxer at night to help you sleep take the cough pills during the day it is important to take deep breaths during the day and exercise your lungs to prevent pneumonia rest and drink plenty of fluids follow up with your doctor If you develop new or worsening symptoms call 911 or come back to the ER for further evaluation. Prescriptions: New benzonatate 100 mg capsule 100 mg PO TID PRN (Reason: cough) Qty: 20 0RF hydrocodone-homatropine [Hycodan] 5-1.5 mg/5 mL (5 mL) solution 5 ml PO Q6H PRN (Reason: cough) Qty: 60 0RF Rx Instructions: Partial Fill upon patient request. cyclobenzaprine 5 mg tablet 5 mg PO BID PRN (Reason: muscle spasm) Qty: 10 0RF codeine-guaifenesin 10-200 mg/5 mL liquid 5 ml PO Q6H PRN (Reason: cough) Qty: 60 0RF No Action lidocaine [Lidoderm] 5 % adhesive patch,medicated 1 patch topical DAILY Qty: 15 0RF Rx Instructions: leave on most painful area for up to 12 hrs baclofen 5 mg tablet 5 mg PO TID PRN (Reason: muscle pain) Qty: 10 0RF hydroxychloroquine 200 mg tablet PO propranolol 60 mg capsule,extended release 24 hr 60 mg PO DAILY sumatriptan succinate 100 mg tablet 100 mg PO Q2-4H PRN Rx Instructions: do not exceed 2 doses per 24 hrs famotidine [Pepcid] 40 mg tablet 40 mg PO DAILY hydrocortisone 0.5 % ointment 1 appl topical BID 14 Days Qty: 56 0RF Rx Instructions: Can discontinue use when symptoms resolve, use for a maximum of 2 weeks Referrals: Roseann Maria MD [Primary Care Provider] - Stand Alone Forms: Work/School Release Interventions: ED Discharge Assessment Last Done: 08/28/24 10:53 Discharge Date/Time: 08/28/24 10:55 Print Language: Afghan
[2024-08-28 10:23] LABS: Influenza A PCR NEGATIVE (Negative); Influenza B PCR NEGATIVE (Negative); Resp Syncy Virus RNA Qual PCR NEGATIVE (Negative); SARS COV2 PCR INHOUSE NEGATIVE (Negative)
[2024-08-28 10:53] VITALS: BP 155/50; PULSE 87; RESP 16; TEMP 36.7; O2SAT 99
== END 2024-08-28 10:55 | disposition home or self-care (01) ==
PROVIDERS: Emergency Provider Emergency Medicine; PCP Internal Medicine
DX: S20.212A Contusion of left front wall of thorax, initial encounter (principal); M54.50 Low back pain, unspecified; R05.9 Cough, unspecified; X58.XXXA Exposure to other specified factors, initial encounter; Y93.9 Activity, unspecified; Y92.9 Unspecified place or not applicable; Y99.8 Other external cause status; Z79.899 Other long term (current) drug therapy; Z03.818 Encounter for observation for suspected exposure to other biological agents ruled out
CPT/HCPCS: 0241U; 71101; 99282; 99283

== ENCOUNTER → 2024-08-28 09:16 | Outpatient (BNV) | payer MEDICARE, SELFPAY | PROVIDERS: Emergency Provider Emergency Medicine; PCP Internal Medicine; Visit Provider Radiology Diagnostic Radiology | DX: R07.89 Other chest pain (principal) | CPT/HCPCS: 71101 ==